=== PATIENT | male | born 1945 | race Caucasian/White ===

== ENCOUNTER → 2021-03-17 | Outpatient (CLI) | payer MEDICARE ==
[~2021-03-17] MED LIST: ACCUPRIL20 MG PO; GLUCOSAMINE & C1 TA1 PO; MULTIPLE VITAMI1 CAP PO; PERCOCET 5/321 UDTAB PO
== END ==
LOC: COL.RAD 12:15
DX: H53.2 Diplopia (principal)

== ENCOUNTER → 2021-03-25 | Outpatient (CLI) | payer MEDICARE | LOC: COL.RAD 10:43 | DX: I67.2 Cerebral atherosclerosis (principal); I65.03 Occlusion and stenosis of bilateral vertebral arteries; H53.2 Diplopia | CPT/HCPCS: Q9967 ==